=== PATIENT | female | born 1960 | race Caucasian/White ===

== ENCOUNTER 2017-10-03 08:58 | Day surgery (SDC) | payer BC ==
[~2017-10-03] VITALS: Ht 167.6 cm; Wt 56.4 kg
[~2017-10-03 08:58] MED LIST: LEVAQUIN 5500 MG/TA1 PO; PREDNISONE20 MG PO; SINGULAIR 110 MG/TAB PO; SUTENT25 MG PO; SYNTHROID 0.0.025 MG PO
[2017-10-03] MEDS ORDERED: SYNTHROID0.05 MG/TA PO (09:15)
[2017-10-03] MEDS ORDERED: CIPRO 250MG TA250 MG PO (09:16)
[2017-10-03 09:18] VITALS: BP 105/74; PULSE 57; TEMP 98.2
[2017-10-03 11:15] VITALS: BP 99/55; PULSE 52; TEMP 98.1
[2017-10-03 11:30] VITALS: BP 92/62; PULSE 52
[2017-10-03 11:45] VITALS: BP 91/59; PULSE 49
[2017-10-03 12:00] VITALS: BP 101/59; PULSE 47
== END 2017-10-03 12:20 | disposition home or self-care (01) ==
LOC: SDCO 08:58
DX: Z12.11 Encounter for screening for malignant neoplasm of colon (principal); Z83.71 Family history of colonic polyps; K63.5 Polyp of colon; K64.0 First degree hemorrhoids; J45.909 Unspecified asthma, uncomplicated; E03.9 Hypothyroidism, unspecified; Z79.899 Other long term (current) drug therapy
CPT/HCPCS: OP; J2250; J2405; J3010; J7030

== ENCOUNTER → 2017-10-20 | Outpatient (REF) ==
[~2017-10-20] MED LIST changes: +CIPRO 250MG TA250 MG PO; +SYNTHROID0.05 MG/TA PO
== END ==
LOC: COL.LAB 17:34 → EDSTATUS 17:35 → COL.LAB 17:42
DX: M79.661 Pain in right lower leg (principal)

== ENCOUNTER → 2017-12-19 | Outpatient (CLI) | payer BC | LOC: MC.RAD 13:16 | DX: Z12.31 Encounter for screening mammogram for malignant neoplasm of breast (principal) ==

== ENCOUNTER → 2018-02-02 | Outpatient (CLI) | payer BC | LOC: COL.RAD 13:13 | DX: N30.21 Other chronic cystitis with hematuria (principal) ==

== ENCOUNTER → 2019-11-07 | Outpatient (CLI) | payer BC | LOC: MC.RAD 13:15 | DX: Z12.31 Encounter for screening mammogram for malignant neoplasm of breast (principal) ==

== ENCOUNTER 2020-02-25 12:30 | Outpatient (RCR) | payer BC | END 2020-03-30 | disposition home or self-care (01) | LOC: WSST | DX: R49.0 Dysphonia (principal); J38.3 Other diseases of vocal cords ==

== ENCOUNTER 2021-03-08 10:15 | Outpatient (RCR) | payer BC | END 2021-03-26 | disposition home or self-care (01) | LOC: PT.GENESIS | DX: S93.492A Sprain of other ligament of left ankle, initial encounter (principal) ==

== ENCOUNTER → 2022-04-27 | Outpatient (CLI) | payer BC | LOC: COL.RAD 12-29 10:00 | DX: R91.1 Solitary pulmonary nodule (principal) ==

== ENCOUNTER → 2023-06-15 | Outpatient (CLI) | payer BC ==
[~2023-06-15] MED LIST changes: +Gadoterate 15 ML VIAL IV ONE
== END ==
LOC: COL.RAD 06:51
DX: K86.2 Cyst of pancreas (principal)
CPT/HCPCS: A9575